=== PATIENT | female | born 1935 | race Caucasian/White ===

== ENCOUNTER 2016-12-14 11:46 | Emergency (ER) | payer OTHER ==
[2016-12-14 12:01] VITALS: BP 155/60; PULSE 60; TEMP 98.2; BMI 30.4
[2016-12-14] MEDS ORDERED: KETOROLAC TROMETHAMINE 60 MG/2 ML VIAL IM ONE (12:17)
--- NOTE | 2016-12-14 12:22 | PDOC ---
History of Present Illness - General Chief Complaint: Pain, Acute Stated Complaint: RIGHT LOWER BACK PAIN RADIATES DOWN RIGHT LEG Time Seen by Provider: 12/14/16 12:12 History Source: Patient, Old Records Exam Limitations: No Limitations - History of Present Illness Initial Comments: 12/14/16 12:18 81-year-old female with history of hypertension and sciatica in the past presents the emergency department with one month history of right-sided lower back pain radiating down her posterior right thigh described as sharp worsening with movement. The patient states that the pain is exactly the same as her sciatica pain that she experienced years ago.The patient has taken Aleve and Tylenol with minimal relief. The patient has been treated with cortisone shots in the past. She denies abdominal pain, nausea, vomiting, complaints. She denies fevers and chills. She is without other complaints at this time. There is no traumatic mechanism. Past History - Past Medical History Allergies/Adverse Reactions: Allergies Allergy/AdvReac Type Severity Reaction Status Date / Time morphine Allergy Severe Swelling Verified 12/14/16 11:49 amoxicillin trihydrate Allergy Mild Itching Verified 12/14/16 11:49 [From Augmentin] potassium clavulanate Allergy Mild Itching Verified 12/14/16 11:49 [From Augmentin] Sulfa (Sulfonamide Allergy Mild Itching Verified 12/14/16 11:49 Antibiotics) [Sulfa(Sulfonamide Antibiotics)] tetracycline [Tetracycline] Allergy Mild Itching Verified 12/14/16 11:49 nitrofurantoin Allergy Verified 12/14/16 11:49 [Nitrofurantoin] oxycodone [Oxycodone] Allergy Hallucinati Verified 12/14/16 11:49 on NITRFUR Allergy Intermediate Swelling Uncoded 12/14/16 11:49 Home Medications: Ambulatory Orders Cyclobenzaprine HCl [Flexeril 10 mg] 5 mg PO BID PRN #10 tablet MDD 2 12/14/16 Ursodiol 500 mg PO BID 12/14/16 Anemia: No Asthma: No Cancer: No Cardiac Disorders: No CVA: No COPD: No CHF: No Dementia: No Diabetes: No GI Disorders: Yes (GERD) Disorders: Yes (UTI'S) HTN: Yes Hypercholesterolemia: No Liver Disease: No Psychiatric Problems: Yes (ANXIETY) Suicide Attempt (Hx): No Seizures: No Thyroid Disease: No - Surgical History Abdominal Surgery: No Appendectomy: No Cardiac Surgery: No Cholecystectomy: Yes Lung Surgery: No Neurologic Surgery: No Orthopedic Surgery: Yes (fractured right wrist) - Immunization History Immunization Up to Date: Yes - Psycho/Social/Smoking Cessation Hx Anxiety: Yes Suicidal Ideation: No Smoking Status: No Smoking History: Never smoked Have you smoked in the past 12 months: No Number of Cigarettes Smoked Daily: 0 Information on smoking cessation initiated: No Hx Alcohol Use: No Drug/Substance Use Hx: No Substance Use Type: None Hx Substance Use Treatment: No Review of Systems - Review of Systems Able to Perform ROS?: Yes Is the patient limited Malaysian proficient: No Constitutional: No: Symptoms Reported HEENTM: No: Symptoms Reported Respiratory: No: Symptoms reported Cardiac (ROS): No: Symptoms Reported ABD/GI: No: Symptoms Reported : No: Symptoms Reported Musculoskeletal: Yes: See HPI Integumentary: No: Symptoms Reported Neurological: No: Symptoms reported *Physical Exam - Vital Signs Last Vital Signs Temp Pulse Resp BP Pulse Ox 98.2 F 60 16 155/60 97 12/14/16 11:47 12/14/16 11:47 12/14/16 11:47 12/14/16 11:47 12/14/16 11:47 - Physical Exam Comments: 12/14/16 12:19 GENERAL: Well developed, well nourished. Awake and alert. No acute distress. NECK: Supple. Full ROM. No JVD. No lymphadenopathy. CARDIOVASCULAR: Regular rate and rhythm. No murmurs, rubs, or gallops. Distal pulses are 2+ and symmetric. PULMONARY: No evidence of respiratory distress. Lungs clear to auscultation bilaterally. No wheezing, rales or rhonchi. ABDOMINAL: Soft. Non-tender. Non-distended. No rebound or guarding. No organomegaly. Normoactive bowel sounds. MUSCULOSKELETAL Normal range of motion at all joints. No bony deformities or tenderness. No CVA tenderness. EXTREMITIES: No cyanosis. No clubbing. No edema. No calf tenderness. SKIN: Warm and dry. Normal capillary refill. No rashes. No jaundice. NEUROLOGICAL: Alert, awake, appropriate. Cranial nerves 2-12 intact. Grossly non-focal exam. Medical Decision Making - Medical Decision Making 12/14/16 12:19 81-year-old female with history of sciatica and hypertension who presents to the emergency department with right-sided lower back pain radiating down her right lower extremity. Differential diagnosis includes but is not limited to: Disc herniation, sciatica, renal colicunlikely given her lack of complaints as well as nausea and vomiting. Plan: 1. Urine analysis 2. Pain management 3. Observe and reevaluate *DC/Admit/Observation/Transfer Diagnosis at time of Disposition: Lower back pain - Discharge Dispostion Disposition: HOME Condition at time of disposition: Stable Admit: No - Patient Instructions Printed Discharge Instructions: DI for Low Back Pain Additional Instructions: You may take ibuprofen 600 mg every 6-8 hours as needed for pain. You are also being prescribed flexiril 5mg--you may take one tablet up to two times per day as needed for the pain. Please follow-up with your primary care physician or orthopedist as necessary. He may return to the emergency department if your symptoms persist, worsen, or new symptoms arise.
[2016-12-14] MEDS ORDERED: KETOROLAC TROMETHAMINE 60 MG/2 ML VIAL ONE (12:23)
[2016-12-14 12:47] LABS: URINE APPEARANCE Clear; URINE BILIRUBIN 1+ (NEGATIVE); URINE BLOOD Negative (NEGATIVE); URINE GLUCOSE (UA) Negative (NEGATIVE); URINE KETONE 1+ (NEGATIVE); URINE LEUK ESTERASE Trace (NEGATIVE); URINE NITRITE Negative (NEGATIVE); URINE PROTEIN Trace (NEGATIVE); URINE UROBILINOGEN 0.2 E.U/dl (0.2-1.0)
[2016-12-14 12:48] LABS: URINE COLOR YELLOW
[2016-12-14] MEDS ORDERED: CYCLOBENZAPRINE HCL 10 MG TABLET (FP) PO ONE (13:02)
[2016-12-14] MEDS ORDERED: CYCLOBENZAPRINE HCL 10 MG TABLET (FP) ONE (13:03)
== END 2016-12-14 14:11 | disposition home or self-care (01) ==
LOC: FER 11:46
PROC: 3E0233Z Introduction of Anti-inflammatory into Muscle, Percutaneous Approach (ICD-10-PCS; principal; 2016-12-14)
DX: M54.5 Low back pain (principal); I10 Essential (primary) hypertension; K21.9 Gastro-esophageal reflux disease without esophagitis; F41.9 Anxiety disorder, unspecified; Z87.440 Personal history of urinary (tract) infections
CPT/HCPCS: 81003; 96372; 99282-25

== ENCOUNTER 2017-04-14 10:23 | Emergency (ER) | payer OTHER ==
[2017-04-14 10:38] LABS: PH,URINE 5.5 (4.5-8); URINE BILIRUBIN Negative (NEGATIVE); URINE GLUCOSE (UA) Negative (NEGATIVE); URINE KETONE Negative (NEGATIVE); URINE NITRITE Negative (NEGATIVE); URINE UROBILINOGEN 0.2 (0.2-1.0)
[2017-04-14 10:39] LABS: URINE APPEARANCE CLOUDY; URINE BLOOD 2+ (NEGATIVE); URINE COLOR YELLOW; URINE LEUK ESTERASE 2+ (NEGATIVE); URINE PROTEIN 3+ (NEGATIVE)
[2017-04-14 10:46] VITALS: BP 164/75; PULSE 65; TEMP 98.1; BMI 30.2
--- NOTE | 2017-04-14 10:50 | PDOC ---
History of Present Illness - General Chief Complaint: Urinary Problem Stated Complaint: burning on urination Time Seen by Provider: 04/14/17 10:29 - History of Present Illness Initial Comments: 04/14/17 10:51 The patient is an 81-year old female with significant past medical history of chronic back pain and lumbar radiculopathy, recurrent UTIs, who presents with dysuria since last night. Pt also reports 2/10 dull suprapubic pain. She reports she last was on levaquin for a UTI on 04/02/17 which she took 500mg the first day and 250mg for 4 days afterwards which resolved her symptoms but they recurred last night. Denies fevers, chills, flank pain, N/V/D, Denies CP, SOB, headache, focal weakness or numbness, rash, anorexia PMD is Dr. Tsang. Past History - Past Medical History Allergies/Adverse Reactions: Allergies Allergy/AdvReac Type Severity Reaction Status Date / Time morphine Allergy Severe Swelling Verified 04/14/17 10:23 amoxicillin trihydrate Allergy Mild Itching Verified 04/14/17 10:23 [From Augmentin] potassium clavulanate Allergy Mild Itching Verified 04/14/17 10:23 [From Augmentin] Sulfa (Sulfonamide Allergy Mild Itching Verified 04/14/17 10:23 Antibiotics) [Sulfa(Sulfonamide Antibiotics)] tetracycline [Tetracycline] Allergy Mild Itching Verified 04/14/17 10:23 nitrofurantoin Allergy Verified 04/14/17 10:23 [Nitrofurantoin] oxycodone [Oxycodone] Allergy Hallucinati Verified 04/14/17 10:23 on NITRFUR Allergy Intermediate Swelling Uncoded 04/14/17 10:23 Home Medications: Ambulatory Orders Ursodiol 500 mg PO BID 12/14/16 Levofloxacin [Levaquin -] 250 mg PO DAILY #10 tablet 04/14/17 Anemia: No Asthma: No Cancer: No Cardiac Disorders: No CVA: No COPD: No CHF: No Dementia: No Diabetes: No GI Disorders: Yes (GERD) Disorders: Yes (UTI'S) HTN: Yes Hypercholesterolemia: No Liver Disease: No Psychiatric Problems: Yes (ANXIETY) Seizures: No Thyroid Disease: No - Surgical History Abdominal Surgery: No Appendectomy: No Cardiac Surgery: No Cholecystectomy: Yes Lung Surgery: No Neurologic Surgery: No Orthopedic Surgery: Yes (fractured right wrist) - Immunization History Immunization Up to Date: Yes - Suicide/Smoking/Psychosocial Hx Smoking Status: No Smoking History: Never smoked Have you smoked in the past 12 months: No Number of Cigarettes Smoked Daily: 0 Hx Alcohol Use: No Drug/Substance Use Hx: No Substance Use Type: None Hx Substance Use Treatment: No Review of Systems - Review of Systems Comments:: 04/14/17 11:44 GENERAL/CONSTITUTIONAL: No fever or chills. No weakness. HEAD, EYES, EARS, NOSE AND THROAT: No change in vision. No ear pain or discharge. No sore throat. GASTROINTESTINAL: No nausea, vomiting, diarrhea or constipation. GENITOURINARY: +dysuria, +suprapubic abd pain, no frequency CARDIOVASCULAR: No chest pain or shortness of breath. RESPIRATORY: No cough, wheezing, or hemoptysis. MUSCULOSKELETAL: No joint or muscle swelling or pain. No neck or back pain. SKIN: No rash NEUROLOGIC: No headache, vertigo, loss of consciousness, or change in strength/ sensation. ENDOCRINE: No increased thirst. No abnormal weight change. HEMATOLOGIC/LYMPHATIC: No anemia, easy bleeding, or history of blood clots. ALLERGIC/IMMUNOLOGIC: No hives or skin allergy. *Physical Exam - Vital Signs Last Vital Signs Temp Pulse Resp BP Pulse Ox 98.1 F 65 17 164/75 98 04/14/17 10:23 04/14/17 10:23 04/14/17 10:23 04/14/17 10:23 04/14/17 10:23 - Physical Exam Comments: 04/14/17 11:45 GENERAL: Awake, alert, and fully oriented, in no acute distress HEAD: No signs of trauma EYES: PERRLA, EOMI, sclera anicteric, conjunctiva clear ENT: Auricles normal inspection, hearing grossly normal, nares patent, oropharynx clear without exudates. Moist mucosa NECK: Normal ROM, supple, no lymphadenopathy, JVD, or masses LUNGS: Breath sounds equal, clear to auscultation bilaterally. No wheezes, and no crackles HEART: Regular rate and rhythm, normal S1 and S2, no murmurs, rubs or gallops ABDOMEN: Soft, +mild suprapubic ttp to deep palpation, normoactive bowel sounds. No guarding, no rebound. No masses. No CVAT. EXTREMITIES: Normal range of motion, no edema. No clubbing or cyanosis. No cords, erythema, or tenderness NEUROLOGICAL: Normal speech, cranial nerves intact, negative pronator drift, 5/ 5 strength in all 4 extremities, normal sensation to light touch in all 4 extremities, normal cerebellar exam, normal gait, normal reflexes and tone SKIN: Warm, Dry, normal turgor, no rashes or lesions noted. ED Treatment Course - ADDITIONAL ORDERS Additional order review: Laboratory Results 04/14/17 10:29 Urine Color Yellow Urine Appearance Cloudy Urine pH 5.5 Ur Specific [place] 1.015 Urine Protein 3+ H Urine Glucose (UA) Negative Urine Ketones Negative Urine Blood 2+ H Urine Nitrite Negative Urine Bilirubin Negative Urine Urobilinogen 0.2 Medical Decision Making - Medical Decision Making 04/14/17 11:46 81-year-old female with a history of recurrent UTIs presents with dysuria and suprapubic pain/tenderness concerning for UTI. UA here with many wbc's and bacteria. Will treat with Levaquin as this has worked for the patient in the past but will prescribe a longer course for 10 days given the quick recurrence of symptoms after UTI just 2 weeks ago. I discussed the physical exam findings, ancillary test results and final diagnoses with the patient. I answered all of the patient's questions. The patient was satisfied with the care received and felt comfortable with the discharge plan and treatment plan. The patient will call their primary care physician within 24 hours to arrange follow-up and will return to the Emergency Department with any new, persistent or worsening symptoms. *DC/Admit/Observation/Transfer Diagnosis at time of Disposition: Acute urinary tract infection - Discharge Dispostion Disposition: HOME Condition at time of disposition: Stable Admit: No - Prescriptions Prescriptions: Levofloxacin [Levaquin -] 250 mg PO DAILY #10 tablet - Referrals Referrals: Rai Tsang MD [Primary Care Provider] - - Patient Instructions Printed Discharge Instructions: Urinary Tract Infection Additional Instructions: Follow up with Dr. Tasng in 2-3 days. Return to the emergency department immediately for any new or concerning symptoms or if your symptoms get worse. Thank you for coming to the Emergency Department today for your care. It was a pleasure to see you today. Please note that your evaluation is INCOMPLETE until you follow-up with your doctor. - Attestations Physician Attestion: 04/14/17 11:37 I, Dr. Venkat Patel MD, attest that this document has been prepared under my direction and personally reviewed by me in its entirety. I further attest, that it accurately reflects all work, treatment, procedures and medical decision -making performed by me.
[2017-04-14 10:56] LABS: URINE BACTERIA MODERATE /hpf (NEGATIVE); URINE WBC MANY (3-5)
[2017-04-14] MEDS ORDERED: PHENAZOPYRIDINE HCL 100 MG TABLET (FP) PO ONE (11:04)
[2017-04-14] MEDS ORDERED: PHENAZOPYRIDINE HCL 100 MG TABLET (FP) ONE (11:16)
[2017-04-14] MEDS ORDERED: LEVOFLOXACIN 250 MG TABLET (FP) ONE (11:16)
[2017-04-14] MEDS ORDERED: LEVOFLOXACIN 750 MG TABLET PO ONE (11:46)
[2017-04-15] MEDS ORDERED: LEVOFLOXACIN 750 MG TABLET PO ONE (11:05)
== END 2017-04-14 11:47 | disposition home or self-care (01) ==
LOC: FER 10:23
DX: N39.0 Urinary tract infection, site not specified (principal); G89.29 Other chronic pain; K21.9 Gastro-esophageal reflux disease without esophagitis; I10 Essential (primary) hypertension; F41.9 Anxiety disorder, unspecified
CPT/HCPCS: 81003; 81015; 87086; 99282-25

== ENCOUNTER 2017-04-19 18:18 | Emergency (ER) | payer OTHER ==
[2017-04-19 18:40] VITALS: BP 162/75; PULSE 62; TEMP 98.5; BMI 30.2
--- NOTE | 2017-04-19 19:30 | PDOC ---
History of Present Illness - General History Source: Patient Exam Limitations: No Limitations - History of Present Illness Initial Comments: 04/19/17 20:28 The patient is a 81 year old female, with a significant past medical history of chronic back pain and lumbar radiculopathy, recurrent UTIs, who presents to the emergency department with, complaints of right flank pain that began. Patient reports right sided pain began recently with no signs of relief. She does not rate the pain but states it is a sharp pain that is increased when sitting upright. Patient reports not taking any medication prior to coming to the ED. She states current right sided flank pain feels similar to what she has experienced in the past. Denies falling, recent trauma. Denies chest pain, shortness of breath, headache and dizziness. Denies fever, chills, nausea, vomit, diarrhea and constipation. Denies dysuria, frequency, urgency and hematuria. Allergies: Morphine, Amoxicillin Trihydrate, Potassium Clavulanate, Sulfa, Tetracycline, Past surgical history: Cholecystectomy, Right wrist orthopedic surgery. Social history: No smoking. No alcohol. No illicit drugs. PCP: Dr. Tsang <Joseph Sagastume - Last Filed: 04/19/17 20:28> <Tri Mancuso - Last Filed: 04/19/17 20:49> - General Chief Complaint: Back Pain Stated Complaint: RIGHT LOWER BACK/BUTTOCK PAIN Time Seen by Provider: 04/19/17 19:29 Past History <Joseph Sagastume - Last Filed: 04/19/17 20:28> - Past Medical History Anemia: No Asthma: No Cancer: No Cardiac Disorders: No CVA: No COPD: No CHF: No Dementia: No Diabetes: No GI Disorders: Yes (GERD) Disorders: Yes (UTI'S) HTN: Yes Hypercholesterolemia: No Liver Disease: No Psychiatric Problems: Yes (ANXIETY) Seizures: No Thyroid Disease: No Other medical history: BACK PAIN - Surgical History Abdominal Surgery: No Appendectomy: No Cardiac Surgery: No Cholecystectomy: Yes Lung Surgery: No Neurologic Surgery: No Orthopedic Surgery: Yes (fractured right wrist) - Immunization History Immunization Up to Date: Yes - Suicide/Smoking/Psychosocial Hx Smoking Status: No Smoking History: Never smoked Have you smoked in the past 12 months: No Number of Cigarettes Smoked Daily: 0 Hx Alcohol Use: No Drug/Substance Use Hx: No Substance Use Type: None Hx Substance Use Treatment: No <Tri Mancuso - Last Filed: 04/19/17 20:49> - Past Medical History Allergies/Adverse Reactions: Allergies Allergy/AdvReac Type Severity Reaction Status Date / Time morphine Allergy Severe Swelling Verified 04/14/17 10:23 amoxicillin trihydrate Allergy Mild Itching Verified 04/14/17 10:23 [From Augmentin] potassium clavulanate Allergy Mild Itching Verified 04/14/17 10:23 [From Augmentin] Sulfa (Sulfonamide Allergy Mild Itching Verified 04/14/17 10:23 Antibiotics) [Sulfa(Sulfonamide Antibiotics)] tetracycline [Tetracycline] Allergy Mild Itching Verified 04/14/17 10:23 nitrofurantoin Allergy Verified 04/14/17 10:23 [Nitrofurantoin] oxycodone [Oxycodone] Allergy Hallucinati Verified 04/14/17 10:23 on NITRFUR Allergy Intermediate Swelling Uncoded 04/14/17 10:23 Home Medications: Ambulatory Orders Ursodiol 500 mg PO BID 12/14/16 Levofloxacin [Levaquin -] 250 mg PO DAILY #10 tablet 04/14/17 Ciprofloxacin HCl [Cipro] 500 mg PO BID #14 tablet 04/19/17 Cyclobenzaprine HCl 5 mg PO DAILY 04/19/17 Review of Systems - Review of Systems Able to Perform ROS?: Yes Comments:: 04/19/17 20:28 GENERAL/CONSTITUTIONAL: No fever or chills. No weakness. HEAD, EYES, EARS, NOSE AND THROAT: No change in vision. No ear pain or discharge. No sore throat. CARDIOVASCULAR: No chest pain or shortness of breath. RESPIRATORY: No cough, wheezing, or hemoptysis. GASTROINTESTINAL: No nausea, vomiting, diarrhea or constipation. GENITOURINARY: No dysuria, frequency, or change in urination. MUSCULOSKELETAL: +Right sided flank pain. No joint or muscle swelling.. No neck or back pain. SKIN: No rash NEUROLOGIC: No headache, vertigo, loss of consciousness, or change in strength/ sensation. ENDOCRINE: No increased thirst. No abnormal weight change. HEMATOLOGIC/LYMPHATIC: No anemia, easy bleeding, or history of blood clots. ALLERGIC/IMMUNOLOGIC: No hives or skin allergy. All Other Systems: Reviewed and Negative <Mitesh,Joseph - Last Filed: 04/19/17 20:28> *Physical Exam - Vital Signs Last Vital Signs Temp Pulse Resp BP Pulse Ox 98.5 F 62 16 162/75 96 04/19/17 18:20 04/19/17 18:20 04/19/17 18:20 04/19/17 18:20 04/19/17 18:20 - Physical Exam Comments: 04/19/17 20:28 GENERAL: Awake, alert, and fully oriented, in no acute distress HEAD: No signs of trauma EYES: PERRLA, EOMI, sclera anicteric, conjunctiva clear ENT: Auricles normal inspection, hearing grossly normal, nares patent, oropharynx clear without exudates. Moist mucosa NECK: Normal ROM, supple, no lymphadenopathy, JVD, or masses LUNGS: Breath sounds equal, clear to auscultation bilaterally. No wheezes, and no crackles HEART: Regular rate and rhythm, normal S1 and S2, no murmurs, rubs or gallops ABDOMEN: Soft, nontender, normoactive bowel sounds. No guarding, no rebound. No masses EXTREMITIES: +5/5 strength with great toe extension bilaterally. +Point tenderness in her right buttock. No point tenderness over spine. Normal range of motion, no edema. No clubbing or cyanosis. No cords, erythema, or tenderness NEUROLOGICAL: Cranial nerves II through XII grossly intact. Normal speech, normal gait SKIN: Warm, Dry, normal turgor, no rashes or lesions noted. <Joseph Sagastume - Last Filed: 04/19/17 20:28> - Vital Signs Last Vital Signs Temp Pulse Resp BP Pulse Ox 98.5 F 62 16 162/75 96 04/19/17 18:20 04/19/17 18:20 04/19/17 18:20 04/19/17 18:20 04/19/17 18:20 <Tri Mancuso - Last Filed: 04/19/17 20:49> ED Treatment Course - ADDITIONAL ORDERS Additional order review: Laboratory Results 04/19/17 19:00 Urine Color Yellow Urine Appearance Clear Urine pH 6.0 Ur Specific [place] 1.015 Urine Protein Negative Urine Glucose (UA) Negative Urine Ketones Negative Urine Blood Trace-lysed H Urine Nitrite Negative Urine Bilirubin Negative Urine Urobilinogen 0.2 Ur Leukocyte Esterase 1+ H Urine RBC 0-2 Urine WBC 4-8 Ur Epithelial Cells Few Urine Bacteria Moderate - Medications Given in the ED: ED Medications Discontinued Medications Generic Name Dose Route Start Last Admin Trade Name Freq PRN Reason Stop Dose Admin Oxycodone/Acetaminophen 1 combo 04/19/17 18:59 04/19/17 19:05 Percocet 5/325 - PO 04/19/17 19:00 1 combo ONCE ONE Administration Oxycodone/Acetaminophen 1 combo 04/19/17 19:51 04/19/17 20:00 Percocet 5/325 - PO 04/19/17 19:52 1 combo ONCE ONE Administration <Joseph Sagastume - Last Filed: 04/19/17 20:28> - Medications Given in the ED: ED Medications Discontinued Medications Generic Name Dose Route Start Last Admin Trade Name Freq PRN Reason Stop Dose Admin Oxycodone/Acetaminophen 1 combo 04/19/17 18:59 04/19/17 19:05 Percocet 5/325 - PO 04/19/17 19:00 1 combo ONCE ONE Administration <Tri Mancuso - Last Filed: 04/19/17 20:49> Medical Decision Making - Medical Decision Making 04/19/17 20:43 Pt presents to the ED complaining of R sided buttock pain that radiates to her lower back and leg. Denies injuries. Pain is similar to her chronic pain. Relief with percoset in the Ed. Of note, patient was seen in the ED one week ago for UTI. Still complaining of some dysuria without nausea, vomiting, fever or flank pain. + UTI on UA. 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 Will change from levaquin to cipro and instruct patient to follow up with PMD. <Tri Mancuso - Last Filed: 04/19/17 20:49> *DC/Admit/Observation/Transfer - Attestations Scribe Attestion: 04/19/17 20:28 Documentation prepared by Joseph Sagastume, acting as ophthalmic medical technician for Tri Mancuso MD, /DO. <Joseph Sagastume - Last Filed: 04/19/17 20:28> <Tri Mancuso - Last Filed: 04/19/17 20:49> Diagnosis at time of Disposition: Sciatica Qualifiers: Laterality: right Qualified Code(s): M54.31 - Sciatica, right side - Discharge Dispostion Disposition: HOME Condition at time of disposition: Good - Prescriptions Prescriptions: Ciprofloxacin HCl [Cipro] 500 mg PO BID #14 tablet - Referrals Referrals: Rai Tsang MD [Primary Care Provider] - - Patient Instructions Printed Discharge Instructions: DI for Sciatica, DI for Urinary Tract Infection (UTI) Additional Instructions: return to the ED for severe pain, weakness in the legs, loss of bowel or bladder control. return for fever, severe nausea and vomiting, continued pain with urination.
[2017-04-19 19:59] LABS: URINE APPEARANCE Clear; URINE BILIRUBIN Negative (NEGATIVE); URINE BLOOD Trace-lysed (NEGATIVE); URINE COLOR YELLOW; URINE GLUCOSE (UA) Negative (NEGATIVE); URINE KETONE Negative (NEGATIVE); URINE LEUK ESTERASE 1+ (NEGATIVE); URINE NITRITE Negative (NEGATIVE); URINE PROTEIN Negative (NEGATIVE); URINE UROBILINOGEN 0.2 (0.2-1.0)
[2017-04-19 20:05] LABS: URINE BACTERIA MODERATE /hpf (NEGATIVE); URINE RBC 0-2 /hpf (0-3)
[2017-04-19] MEDS ORDERED: CIPROFLOXACIN 500 MG TABLET (RESTRICTED TO ID) PO ONE (21:00)
[2017-04-19] MEDS ORDERED: CIPROFLOXACIN 250 MG TABLET (RESTRICTED TO ID) PO ONE (21:01)
== END 2017-04-19 21:03 | disposition home or self-care (01) ==
LOC: FER 18:18
DX: M54.31 Sciatica, right side (principal); K21.9 Gastro-esophageal reflux disease without esophagitis; I10 Essential (primary) hypertension; F41.9 Anxiety disorder, unspecified
CPT/HCPCS: 81003; 81015; 99282-25

== ENCOUNTER 2018-02-13 10:07 | Day surgery (SDC) | payer OTHER ==
[2018-02-13] MEDS ORDERED: TRIAMCINOLONE ACET 40MG/1ML VIAL ONE (10:43)
[2018-02-13] MEDS ORDERED: LIDOCAINE HCL 1%, 10 MG/ML (20ML VIAL) ONE (10:43)
[2018-02-13] MEDS ORDERED: BUPIVACAINE HCL 0.25% 125 MG/50 ML VIAL ONE (10:43)
[2018-02-13 10:45] VITALS: BMI 29.0
[2018-02-13] MEDS ORDERED: DEXAMETHASONE SOD PHOSPHATE 10 MG/1 ML VIAL IVPUSH ONE (11:34)
[2018-02-13] MEDS ORDERED: BUPIVACAINE HCL/PF 0.25% (2.5MG/ML) 10 ML VIAL IJ ONE (11:35)
[2018-02-13] MEDS ORDERED: IOHEXOL 180 MG/1 ML ML IJ ONE (11:35)
[2018-02-13] MEDS ORDERED: PROMETHAZINE HCL 25 MG/1 ML VIAL IVPUSH PRN (11:46)
[2018-02-13] MEDS ORDERED: ONDANSETRON 4 MG/2 ML VIAL IVPUSH PRN (11:46)
[2018-02-13 12:06] VITALS: PULSE 48; TEMP 97.7
--- NOTE | 2018-02-13 13:10 | OP ---
DATE OF OPERATION: 02/13/2018 PREOPERATIVE DIAGNOSES: 1. Right lower extremity lumbar radiculopathy. 2. Lumbar spinal stenosis with neurogenic claudication. POSTOPERATIVE DIAGNOSES: 1. Right lower extremity lumbar radiculopathy. 2. Lumbar spinal stenosis with neurogenic claudication. PROCEDURE: Right lumbar transforaminal epidural steroid injection at L2-L3 under fluoroscopic guidance. SURGEON: Bryn Green MD ANESTHESIA: MAC. INDICATIONS: Patient is an 82-year-old female with several months of severe, episodic, right-sided radicular pain. She has significant spinal stenosis at L2-3. She is indicated for epidural steroid injection. Risks, benefits, and alternatives of the surgery were discussed in detail, and informed consent was obtained. DESCRIPTION: The patient was brought into the operating room via stretcher and transferred onto the OR table in the prone position. All bony prominences were padded and the back was then prepped and draped in the usual sterile fashion. Under fluoroscopic guidance, a arley was placed over the skin for the right-sided injection and 5 mL of 0.25% Marcaine was introduced as a local anesthetic. A 3-1/2-inch x 25-gauge spinal needle was inserted under guidance to the level of the foramen using a transforaminal approach just superior to the right L3 pedicle. Once the stylette was inserted to appropriate level, the stylette was removed and 0.25 mL of Omnipaque . There was no blood or CSF aspiration noted. A mixture of 1 mL of 10 mg per mL of dexamethasone and 0.5 mL of 0.25% Marcaine was introduced. The patient tolerated the procedure well without complications. Lisette [id number]
[2018-02-13 13:26] VITALS: BP 140/79
== END 2018-02-13 12:30 | disposition home or self-care (01) ==
LOC: FASU 10:07
PROVIDERS: ATTEND Orthopaedic Surgery Orthopaedic Surgery of the Spine
PROC: 3E0R33Z Introduction of Anti-inflammatory into Spinal Canal, Percutaneous Approach (ICD-10-PCS; 2018-02-13)
PROC: 3E0R3BZ Introduction of Anesthetic Agent into Spinal Canal, Percutaneous Approach (ICD-10-PCS; principal; 2018-02-13 11:45)
DX: M48.062 Spinal stenosis, lumbar region with neurogenic claudication (principal); M54.16 Radiculopathy, lumbar region
CPT/HCPCS: 72100-TC-FY; 94760; J1100

== ENCOUNTER 2018-02-24 16:42 | Emergency (ER) | payer OTHER ==
[2018-02-24 16:58] VITALS: BP 173/64; PULSE 56; TEMP 97.7; BMI 31.6
--- NOTE | 2018-02-24 17:14 | PDOC ---
Attending Attestation - Resident Resident Name: German Gonzalez - ED Attending Attestation I have performed the following: I have examined & evaluated the patient, The case was reviewed & discussed with the resident, I agree w/resident's findings & plan, Exceptions are as noted - HPI HPI: 82 yo F history chronic low back pain s/p injection by Dr. Green on February 13 presents with R low back pain radiating to the R thigh and lower leg. Denies weakness, numbness. She took tylenol prior to arrival, but continues to have pain. - Physicial Exam PE: GENERAL: Awake, alert, and fully oriented, in no acute distress HEAD: No signs of trauma EYES: PERRLA, EOMI, sclera anicteric, conjunctiva clear ENT: Auricles normal inspection, hearing grossly normal, nares patent, oropharynx clear without exudates. Moist mucosa NECK: Normal ROM, supple, no lymphadenopathy, JVD, or masses LUNGS: Breath sounds equal, clear to auscultation bilaterally. No wheezes, and no crackles HEART: Regular rate and rhythm, normal S1 and S2, no murmurs, rubs or gallops ABDOMEN: Soft, nontender, normoactive bowel sounds. No guarding, no rebound. No masses EXTREMITIES: Normal range of motion, no edema. No clubbing or cyanosis. No cords, erythema, or tenderness NEUROLOGICAL: Cranial nerves II through XII grossly intact. Normal speech, normal gait. Motor and sensation intact. SKIN: Warm, Dry, normal turgor, no rashes or lesions noted. - Medical Decision Making Will give small dose of ibuprofen for pain, as patient has multiple medication allergies, including some prior reactions to opioids (hallucinations as documented in chart, but patient cannot recall any details). If ibuprofen is not sufficient, would consider tramadol, but would give a dose in the ED first to monitor for any side effects. F/u with Dr. Green in 1-2 days.
[2018-02-24] MEDS ORDERED: IBUPROFEN 400 MG TABLET (FP) PO ONE ×2 (17:18→17:20)
--- NOTE | 2018-02-24 17:45 | PDOC ---
History of Present Illness - General Chief Complaint: Chronic pain Stated Complaint: BACK PAIN Time Seen by Provider: 02/24/18 16:47 History Source: Patient Exam Limitations: No Limitations - History of Present Illness Initial Comments: 02/24/18 17:38 Patient is an 82F with history of HTN and chronic back pain here today complaining of right sided lower back pain radiating to her leg over the past several months. The patient recently had an injection for the back, but this did not help her pain. She also had an MRI done on 02/05/18 that showed arthritis and chronic disc problems, but no emergent issue with her back pain. Denies fevers, chills, nausea, vomiting. Denies dysuria, urinary incontinence, urinary retention and saddle anesthesia. Patient state that she tried 500mg of tylenol only for pain today. Patient's medical record indicates a history of hallucinations when taking oxycodone. Past History - Past Medical History Allergies/Adverse Reactions: Allergies Allergy/AdvReac Type Severity Reaction Status Date / Time morphine Allergy Severe Swelling Verified 02/13/18 10:38 amoxicillin trihydrate Allergy Mild Itching Verified 02/13/18 10:38 [From Augmentin] potassium clavulanate Allergy Mild Itching Verified 02/13/18 10:38 [From Augmentin] Sulfa (Sulfonamide Allergy Mild Itching Verified 02/13/18 10:38 Antibiotics) [Sulfa(Sulfonamide Antibiotics)] tetracycline [Tetracycline] Allergy Mild Itching Verified 02/13/18 10:38 nitrofurantoin Allergy Verified 02/13/18 10:38 [Nitrofurantoin] oxycodone [Oxycodone] Allergy Hallucinati Verified 02/13/18 10:38 on NITRFUR Allergy Intermediate Swelling Uncoded 02/13/18 10:38 Home Medications: Ambulatory Orders Ursodiol 500 mg PO BID PRN 12/14/16 Atenolol [Tenormin -] 50 mg PO DAILY 02/13/18 Acetaminophen [Tylenol Extra Strength] 1,000 mg PO TID PRN 02/24/18 Anemia: No Asthma: No Cancer: No Cardiac Disorders: No CVA: No COPD: No CHF: No Dementia: No Diabetes: No GI Disorders: No (GERD) Disorders: Yes (UTI'S) HTN: Yes Hypercholesterolemia: No Liver Disease: No Psychiatric Problems: Yes (ANXIETY) Seizures: No Thyroid Disease: No Other medical history: CHRONIC BACK APIN - Surgical History Abdominal Surgery: No Appendectomy: No Cardiac Surgery: No Cholecystectomy: Yes Lung Surgery: No Neurologic Surgery: No Orthopedic Surgery: Yes (RIGHT WRIST FX REPAIR/BACK SX X 10 YRS AGO) - Immunization History Immunization Up to Date: Yes - Suicide/Smoking/Psychosocial Hx Smoking Status: No Smoking History: Never smoked Have you smoked in the past 12 months: No Number of Cigarettes Smoked Daily: 0 Hx Alcohol Use: No Drug/Substance Use Hx: No Substance Use Type: None Hx Substance Use Treatment: No Review of Systems - Review of Systems Comments:: 02/24/18 17:40 GENERAL/CONSTITUTIONAL: No fever or chills. No weakness. HEAD, EYES, EARS, NOSE AND THROAT: No change in vision. No sore throat. CARDIOVASCULAR: No chest pain or shortness of breath RESPIRATORY: No cough, wheezing, or hemoptysis. GASTROINTESTINAL: No nausea, vomiting, diarrhea or constipation. GENITOURINARY: No dysuria, frequency, or change in urination. MUSCULOSKELETAL: No joint or muscle swelling or pain. No neck pain. +back pain. SKIN: No rash NEUROLOGIC: No headache, vertigo, loss of consciousness, or change in strength/ sensation. ENDOCRINE: No increased thirst. No abnormal weight change HEMATOLOGIC/LYMPHATIC: No anemia, easy bleeding, or history of blood clots. ALLERGIC/IMMUNOLOGIC: No hives or skin allergy. *Physical Exam - Vital Signs Last Vital Signs Temp Pulse Resp BP Pulse Ox 97.7 F 56 L 18 173/64 97 02/24/18 16:44 02/24/18 16:44 02/24/18 16:44 02/24/18 16:44 02/24/18 16:44 - Physical Exam Comments: 02/24/18 17:41 GENERAL: Awake, alert, and fully oriented, in no acute distress, sitting straight up in bed HEAD: No signs of trauma, normocephalic, atraumatic EYES: PERRLA, EOMI, sclera anicteric, conjunctiva clear ENT: Auricles normal inspection, hearing grossly normal, nares patent, oropharynx clear without exudates. Moist mucosa NECK: Normal ROM, supple, no lymphadenopathy, JVD, or masses LUNGS: No distress, speaks full sentences, clear to auscultation bilaterally HEART: Regular rate and rhythm, normal S1 and S2, no murmurs, rubs or gallops, peripheral pulses normal and equal bilaterally. ABDOMEN: Soft, nontender, normoactive bowel sounds. No guarding, no rebound. No masses EXTREMITIES: Normal inspection, Normal range of motion, no edema. No clubbing or cyanosis. NEUROLOGICAL: Cranial nerves II through XII grossly intact. Normal speech, normal gait, no focal sensorimotor deficits BACK: Tender in lower right lateral spine. No signs of trauma, no midline tenderness SKIN: Warm, Dry, normal turgor, no rashes or lesions noted. ED Treatment Course - Medications Given in the ED: ED Medications Discontinued Medications Generic Name Dose Route Start Last Admin Trade Name Freq PRN Reason Stop Dose Admin Ibuprofen 400 mg 02/24/18 17:18 02/24/18 17:20 Motrin - PO 02/24/18 17:19 400 mg ONCE ONE Administration Medical Decision Making - Medical Decision Making 02/24/18 17:42 Patient is 82F with history of HTN and chronic back pain here today complaining of back pain. Vital signs normal and stable. Will give 400mg of motrin and reassess. Do not believe opiates are appropriate for patient given history of hallucinations. Will have patient follow up with her PMD, Dr Tsang. 02/24/18 17:49 Patient improved after motrin, asking to go home. Ambulatory. Will discharge home with return precautions. *DC/Admit/Observation/Transfer Diagnosis at time of Disposition: Back pain - Discharge Dispostion Disposition: HOME Condition at time of disposition: Good Decision to Admit order: No - Referrals Referrals: Rai Tsang MD [Primary Care Provider] - Bryn Green MD [Staff Physician] - - Patient Instructions Printed Discharge Instructions: DI for Low Back Pain Additional Instructions: Please call your primary care physician tomorrow to further evaluate your back pain. Please return if you have any new, worsening or concerning symptoms. For your back pain take: - 220mg of Aleve (Naproxen) in the morning and at night - 500mg of tylenol four times per day - Post Discharge Activity
== END 2018-02-24 17:57 | disposition home or self-care (01) ==
LOC: FER 16:42
DX: M54.5 Low back pain (principal); M54.9 Dorsalgia, unspecified; I10 Essential (primary) hypertension; G89.29 Other chronic pain; K21.9 Gastro-esophageal reflux disease without esophagitis; F41.9 Anxiety disorder, unspecified
CPT/HCPCS: 99282-25

== ENCOUNTER 2018-03-26 09:58 | Day surgery (SDC) | payer OTHER ==
[2018-03-07 12:41] VITALS: BMI 31.6
[2018-03-26] MEDS ORDERED: THROMBIN (BOVINE) 5,000 UNIT VIAL TP ONE ×2 (12:34→13:45)
[2018-03-26] MEDS ORDERED: GELATIN, ABSORBABLE 100 EACH SPONGE TP ONE ×2 (12:34→13:45)
[2018-03-26] MEDS ORDERED: SCOPOLAMINE HYDROBROMIDE 1 PATCH PATCH.TD72 ONE (13:08)
[2018-03-26] MEDS ORDERED: fentaNYL CITRATE 250 MCG/5 ML VIAL ONE (13:13)
[2018-03-26] MEDS ORDERED: PROPOFOL 20 ML ONE ×2 (13:13→15:03)
[2018-03-26] MEDS ORDERED: LIDOCAINE HCL/PF 2% SDV 5ML VIAL ONE (15:00)
[2018-03-26] MEDS ORDERED: ceFAZolin SODIUM 1 GM VIAL ONE (15:00)
[2018-03-26] MEDS ORDERED: DEXAMETHASONE SOD PHOSPHATE 4 MG/1 ML VIAL ONE (15:00)
[2018-03-26] MEDS ORDERED: GLYCOPYRROLATE 0.2 MG/1 ML VIAL ONE ×2 (15:00→15:01)
[2018-03-26] MEDS ORDERED: ONDANSETRON 4 MG/2 ML VIAL ONE (15:00)
[2018-03-26] MEDS ORDERED: NEOSTIGMINE METHYLSULFATE 0.5 MG/ML - 10 ML MDV ONE (15:01)
[2018-03-26] MEDS ORDERED: BUPIVACAINE HCL/PF 2.5 MG/ML - 30 ML VIAL IJ ONE (15:08)
[2018-03-26] MEDS ORDERED: BACITRACIN 15 GM TUBE TOPICAL OINTMENT ONE (15:09)
[2018-03-26] MEDS ORDERED: BACITRACIN 15 GM TUBE TOPICAL OINTMENT TP ONE (15:12)
[2018-03-26] MEDS ORDERED: ONDANSETRON 4 MG/2 ML VIAL IVPUSH PRN (15:24)
[2018-03-26] MEDS ORDERED: ONDANSETRON 4 MG/2 ML VIAL IVPUSH ONE (15:24)
[2018-03-26] MEDS ORDERED: PROMETHAZINE HCL 25 MG/1 ML VIAL IVPUSH PRN (15:24)
[2018-03-26] MEDS ORDERED: URSODIOL 300 MG CAPSULE PO PRN (15:26)
[2018-03-26] MEDS ORDERED: diphenhydrAMINE HCL 25 MG CAPSULE (FP) PO PRN (15:30)
[2018-03-26] MEDS ORDERED: PROMETHAZINE HCL 25 MG/1 ML VIAL IVPUSH ONE (15:50)
[2018-03-26] MEDS ORDERED: SODIUM CHLORIDE 0.45% 1,000 ML IV SCH (16:45)
--- NOTE | 2018-03-26 16:55 | OP ---
DATE OF OPERATION: 03/26/2018 PREOPERATIVE DIAGNOSES: 1. Right lower extremity lumbar radiculopathy. 2. Lumbar spinal stenosis. 3. Intervertebral lumbar disk displacement. POSTOPERATIVE DIAGNOSES: 1. Right lower extremity lumbar radiculopathy. 2. Lumbar spinal stenosis. 3. Intervertebral lumbar disk displacement. PROCEDURE PERFORMED: L2-3 decompressive laminectomy with excision of right- sided herniated disk fragments. SURGEON: Bryn Green MD FAMILY SERVICES COORDINATOR: CARLY Stoll ANESTHESIA: General. INDICATION: Patient is an 82-year-old female with severe and persistent, right- sided radicular pain in the right gluteal region and thigh. This has been refractory to management with physical therapy, multiple oral medications, as well as epidural steroid injection. The patient has been severely symptomatic now for several months, and it is affecting her quality of life. She is indicated for operative decompression. Risks, benefits, and alternatives of the surgery were discussed in detail with the patient and family, and informed consent was obtained. DESCRIPTION: The patient was brought in via stretcherand general endotracheal anesthesia was administered by the anesthesiologist. The patient was then flipped into the prone position onto a padded Hakeem frame, and all bony prominences were padded. The back was then prepped and draped in the usual sterile fashion. A timeout was performed, and prophylactic IV antibiotics were administered. A fluoroscopic C-arm was draped in to allow for intraoperative fluoroscopic radiographs. A localizing film was taken, and appropriate incision was then made at the midline. The dissection was carried down to the level of the fascia, and the fascia was then split with electrocautery. Subperiosteal dissection was carried down, exposing the bony spine. A localizing film was then taken again, and when level was verified, a complete decompressive laminectomy of the L2-3 level was performed with a subtotal L2 laminectomy. The decompression was carried down to the pedicles bilaterally with excellent decompression. There was noted to be severe spinal stenosis and hypertrophic ligamentum flavum. The stenosis was then well decompressed. A small probe was then placed lateral to the dura, and a large disk herniated fragment was noted in keeping with the MRI. This fragment was then excised. Excellent decompression was noted. The wounds were then copiously irrigated. The back fascia was then closed with number 1 Vicryl suture. The deep dermal tissue was approximated with 2-0 Vicryl suture. The skin was closed with a 3-0 nylon suture. A sterile dressing was applied. The patient tolerated the procedure well, without complications. CARLY Stoll, was necessary throughout the case for proper assistance in retraction of the neural elements and decompression of the spine. This could not have been done without a skilled surgical instrument repair specialist. Lisette [id number] MTDD
[2018-03-26] MEDS: DOCUSATE SODIUM 100 MG CAPSULE (FP) PO SCH (21:42)
[2018-03-26] MEDS: CEFAZOLIN 1 GM/D5W 1 GM/50 ML BAG IVPB SCH (22:01)
[2018-03-26] MEDS ORDERED: PT OWN MED DRAWER 7, Y5N ONE (22:43)
[2018-03-27 05:30] VITALS: TEMP 98.3
[2018-03-27] MEDS: CEFAZOLIN 1 GM/D5W 1 GM/50 ML BAG IVPB SCH (06:32)
--- NOTE | 2018-03-27 08:33 | PN ---
Progress Note (short form) - Note Progress Note: doing very well states no more right thigh pain AVSS wound dressing c/d/i NVID POD#1 -oob/pt -d/c later today -f/u one week -will leave bioocclusive dressing on for showers unless water gets in, will cover with dry dressing until dry -f/u one week from today for wound check
[2018-03-27] MEDS ORDERED: amLODIPine BESYLATE 5 MG TABLET (FP) PO SCH (10:00)
[2018-03-27] MEDS ORDERED: RAMIPRIL 5 MG CAPSULE (FP) PO SCH (10:00)
[2018-03-27] MEDS ORDERED: SERTRALINE HCL 50 MG TABLET (FP) PO SCH (10:00)
[2018-03-27] MEDS: DOCUSATE SODIUM 100 MG CAPSULE (FP) PO SCH (10:08)
[2018-03-27] MEDS: ATENOLOL 50 MG TABLET (FP) PO SCH ×2 (10:08→10:13)
[2018-03-27 10:12] VITALS: BP 153/51; PULSE 56
== END 2018-03-27 14:35 | disposition home or self-care (01) ==
LOC: FASUSAT 09:58 → FM/S 17:18 → FASUSAT 03-27 14:35
PROVIDERS: ATTEND Orthopaedic Surgery Orthopaedic Surgery of the Spine
PROC: 01NB0ZZ Release Lumbar Nerve, Open Approach (ICD-10-PCS; principal; 2018-03-26 13:42)
DX: M48.062 Spinal stenosis, lumbar region with neurogenic claudication (principal); M54.16 Radiculopathy, lumbar region; M51.26 Other intervertebral disc displacement, lumbar region
CPT/HCPCS: 72100-TC-FY; 76001-TC-FY; 94760; 97116-GP; 97161-GP

== ENCOUNTER 2018-08-07 06:15 | Emergency (ER) | payer OTHER ==
--- NOTE | 2018-08-07 06:17 | PDOC ---
History of Present Illness - General Chief Complaint: Pain, Acute Stated Complaint: BURNING ON URINATION Time Seen by Provider: 08/07/18 06:16 - History of Present Illness Initial Comments: 08/07/18 06:24 This 83-year-old woman with a history of HTN/frequent UTIs/anxiety presents with a several day history of dysuria. Patient has multiple drug ALLERGIES and ,in the past, urine pathogens had multiple drug resistances. She denies back pain, nausea/vomiting, fever/chills. No recent travel. Most recent UTI was , seen in this ER. She cannot recall if she had rapid resolution of her symptoms after treatment and. Patient states that she was seen by her PMD, , last week and urine specimen was sent for urinalysis/culture and sensitivity. She is unaware of the results of that test and has not received any treatment yet. Patient is taking her medications as prescribed Past History - Past Medical History Allergies/Adverse Reactions: Allergies Allergy/AdvReac Type Severity Reaction Status Date / Time morphine Allergy Severe Swelling Verified 08/07/18 06:46 amoxicillin trihydrate Allergy Mild Itching Verified 08/07/18 06:46 [From Augmentin] potassium clavulanate Allergy Mild Itching Verified 08/07/18 06:46 [From Augmentin] Sulfa (Sulfonamide Allergy Mild Itching Verified 08/07/18 06:46 Antibiotics) [Sulfa(Sulfonamide Antibiotics)] tetracycline [Tetracycline] Allergy Mild Itching Verified 08/07/18 06:46 nitrofurantoin Allergy Verified 08/07/18 06:46 [Nitrofurantoin] oxycodone [Oxycodone] Allergy Hallucinati Verified 08/07/18 06:46 on Home Medications: Ambulatory Orders Ursodiol 500 mg PO BID PRN 12/14/16 Atenolol [Tenormin -] 50 mg PO DAILY 02/13/18 Acetaminophen [Tylenol Extra Strength] 1,000 mg PO TID PRN 02/24/18 Sertraline HCl 50 mg PO DAILY 03/07/18 Terconazole 45 gm VG DAILY #7 cream.[email or web address] 07/15/18 Anemia: No Asthma: No Cancer: No Cardiac Disorders: No CVA: No COPD: No CHF: No Dementia: No Diabetes: No GI Disorders: Yes (GERD) Disorders: Yes (UTI'S) HTN: Yes Hypercholesterolemia: No Liver Disease: No Psychiatric Problems: Yes (ANXIETY) Seizures: No Thyroid Disease: No - Surgical History Abdominal Surgery: No Appendectomy: No Cardiac Surgery: No Cholecystectomy: Yes Lung Surgery: No Neurologic Surgery: No Orthopedic Surgery: Yes (RIGHT WRIST FX REPAIR/BACK SX X 10 YRS AGO) - Immunization History Immunization Up to Date: Yes - Suicide/Smoking/Psychosocial Hx Smoking Status: No Smoking History: Never smoked Have you smoked in the past 12 months: No Number of Cigarettes Smoked Daily: 0 Hx Alcohol Use: No Drug/Substance Use Hx: No Substance Use Type: None Hx Substance Use Treatment: No Review of Systems - Review of Systems Able to Perform ROS?: Yes Comments:: 12 point review of systems is negative except for what is noted in the history of present illness *Physical Exam - Physical Exam Comments: GENERAL: Elderly female, alert and oriented 3, anxious in moderate distress secondary to urinary dysuria; frequently tearful HEAD: Normal with no signs of trauma. EYES: PERRLA, EOMI, sclera anicteric, conjunctiva clear. ENT: Ears normal, nares patent, oropharynx clear without exudates. Moist mucous membranes. NECK: Normal range of motion, supple without lymphadenopathy, JVD, or masses. LUNGS: Breath sounds equal, clear to auscultation bilaterally. No wheezes, and no crackles. HEART:Regular rate and rhythm, normal S1 and S2 without murmur, rub or gallop. ABDOMEN:.normal bowel sounds mild suprapubic tenderness. No guarding or rebound.No masses No distention. EXTREMITIES: Normal range of motion, no edema. No clubbing or cyanosis. No erythema, or tenderness. NEUROLOGICAL: Cranial nerves II through XII grossly intact. Normal speech. No focal neurological deficits. MUSCULOSKELETAL: Back non-tender to palpation, no CVA tenderness SKIN: Warm, Dry, normal turgor, no rashes or lesions noted. Progress Note - Progress Note Progress Note: Review of the medical record reveals that patient since patient has multiple drug ALLERGIES, and she tolerates cephalosporins, she was given Keflex for her UTI. Urine culture and sensitivity ultimately revealed that pathogen was Escherichia coli sensitive to all antibiotics Patient states that in the past Pyridium had been prescribed along with antibiotic. She found significant relief when this medication is used. Medical Decision Making - Medical Decision Making 08/07/18 06:56 Patient could not produce urine specimen initially; after drinking water/ cranberry juice, patient is able to urinate and specimen was sent for urinalysis /C&S 08/07/18 07:12 Case was signed out to Dr Agarwal at change of shifts. *DC/Admit/Observation/Transfer - Discharge Dispostion Condition at time of disposition: Stable - Referrals Referrals: Rai Tsang MD [Primary Care Provider] - - Patient Instructions - Post Discharge Activity
[2018-08-07 06:32] VITALS: BP 163/70; PULSE 56; TEMP 97.4; BMI 29.2
[2018-08-07] MEDS ORDERED: ACETAMINOPHEN 325 MG TABLET (FP) ONE (07:45)
[2018-08-07] MEDS ORDERED: ACETAMINOPHEN 325 MG TABLET (FP) PO ONE (07:47)
--- NOTE | 2018-08-07 07:47 | PDOC ---
*Physical Exam - Vital Signs Last Vital Signs Temp Pulse Resp BP Pulse Ox 97.4 F L 56 L 18 163/70 99 08/07/18 06:17 08/07/18 06:17 08/07/18 06:17 08/07/18 06:17 08/07/18 06:17 - Physical Exam Comments: 08/07/18 08:10 Improved after administration of Pyridium. Less bladder discomfort. Urinalysis shows 1+ blood, negative nitrites and leukocyte esterase. Diagnosis of UTI is not certain. This could be atrophic vaginitis with recurrent irritation and pain. Antibiotics and Pyridium were begun pending urine culture results. Instructions to contact Dr. Tsang, primary physician, for referral to urologist and early childhood education instructor to further investigate the cause of frequent bladder symptoms. Patient fully ambulatory and in no significant pain or other distress upon discharge with to follow-up as directed *DC/Admit/Observation/Transfer Diagnosis at time of Disposition: Urinary tract infection Qualifiers: Urinary tract infection type: acute cystitis Hematuria presence: without hematuria Qualified Code(s): N30.00 - Acute cystitis without hematuria - Discharge Dispostion Disposition: HOME Condition at time of disposition: Improved Decision to Admit order: No - Prescriptions Prescriptions: Cephalexin Monohydrate [Keflex] 250 mg PO Q8H #20 capsule Phenazopyridine HCl [Pyridium] 100 mg PO Q8H PRN #10 tablet PRN Reason: Pain - Referrals Referrals: Rai Tsang MD [Primary Care Provider] - 08/07/18 - Patient Instructions Printed Discharge Instructions: DI for Urinary Tract Infection (UTI), DI for Atrophic Vaginitis Additional Instructions: Call Dr. Tsang's office today. See if prior urine culture obtained earlier in the week has been processed and if there is further information as to the results. Discussed with him the possibility of vaginal dryness causing recurrent symptoms and additional type of medication, may be hormonal, to counteract the frequent symptoms. Drink lots of fluids and take medication as directed until culture results are available, at which time a medication adjustment may be necessary. These results will be available from your primary physician. - Post Discharge Activity
[2018-08-07 07:51] LABS: URINE APPEARANCE Clear; URINE BILIRUBIN Negative (NEGATIVE); URINE COLOR Yellow; URINE GLUCOSE (UA) Negative (NEGATIVE); URINE KETONE Negative (NEGATIVE); URINE LEUK ESTERASE 2+ (NEGATIVE); URINE NITRITE Negative (NEGATIVE); URINE PROTEIN Negative (NEGATIVE); URINE UROBILINOGEN 0.2 (0.2-1.0)
[2018-08-07] MEDS ORDERED: PHENAZOPYRIDINE HCL 100 MG TABLET (FP) PO ONE (07:57)
[2018-08-07] MEDS ORDERED: PHENAZOPYRIDINE HCL 100 MG TABLET (FP) ONE (07:59)
[2018-08-07] MEDS ORDERED: CEPHALEXIN MONOHYDRATE 250 MG CAPSULE (FP) PO ONE (07:59)
[2018-08-07] MEDS ORDERED: CEPHALEXIN MONOHYDRATE 250 MG CAPSULE (FP) ONE (08:13)
[2018-08-07 09:29] LABS: EPI CELLS FEW /HPF; URINE BACTERIA FEW /hpf (NEGATIVE); URINE WBC >100 (0-5)
== END 2018-08-07 08:21 | disposition home or self-care (01) ==
LOC: FER 06:15
DX: N30.00 Acute cystitis without hematuria (principal)
CPT/HCPCS: 81003; 81015; 87086; 99281-25

== ENCOUNTER 2018-08-24 08:21 | Emergency (ER) | payer OTHER ==
[2018-08-24 08:37] LABS: URINE APPEARANCE Clear; URINE BILIRUBIN Negative (NEGATIVE); URINE COLOR Orange; URINE GLUCOSE (UA) Trace (NEGATIVE); URINE KETONE Negative (NEGATIVE); URINE LEUK ESTERASE 1+ (NEGATIVE); URINE NITRITE Positive (NEGATIVE); URINE PROTEIN Negative (NEGATIVE)
[2018-08-24 08:41] VITALS: BP 129/70; PULSE 57; TEMP 97.7; BMI 30.2
--- NOTE | 2018-08-24 08:52 | PDOC ---
History of Present Illness - General Chief Complaint: Urinary Problem Stated Complaint: BURN ON URINE Time Seen by Provider: 08/24/18 08:24 History Source: Patient, Family Exam Limitations: No Limitations - History of Present Illness Initial Comments: 08/24/18 08:47 HPI 83 YOF with h/o recurrent UTIs, atrophic vaginitis, HTN, anxiety presenting with dysuria, urgency frequency and suprapubic pressure x 2 days. Feels similar to prior UTIs of unclear etiology. Saw Dr Tsang earlier in the week, rxd pyridium with some symptom relief. Tolerating PO and fluid intake well. Has not seen a urologist for workup of chronic /UTI sx. Last seen in the ED 08/07/18 dxd with UTI and atrophic vaginitis, placed on course of keflex and pyridium with relief. Prior to that, also seen in the ED for UTI sx. Prior urine cultures reveal E. coli and Proteus, with several drug resistances and allergies noted Denies fever, chills, chest pain, SOB, palpitation, dizziness, weakness, N, V, D , leg swelling. No history of kidney stones. Allergies: opioids, amoxicillin, sulfa, tetracycline, nitrofurantoin Past Medical History: recurrent UTIs, atrophic vaginitis, HTN, anxiety Social history: Lives with family. No smoking. No alcohol. No illicit drugs. Surgical history: none PMD: Dr Tsang ========= ROS Constitutional: no fevers or chills. No weakness HEENT: no headache or dizziness. No congestion. No visual/hearing disturbances. CVS: no cp or syncope. Resp: no sob. No cough. Gastrointestinal: +Abdominal pressure. no nausea or vomiting or diarrhea. No flank pain. Genitourinary: +dysuria, urgency, frequency. No hematuria. MUSCULOSKELETAL: No joint pain and swelling. No neck or back pain. SKIN: no redness or skin changes, no discharge, no rash. No wounds. Hematologic: no easy bruising/bleeding. NEUROLOGIC: No headache, dizziness, LOC or altered mental status. Allergic/Immunologic: +multiple drug allergies All other systems reviewed and negative, or as documented in HPI. PE: General: Well appearing, awake and alert, NAD. HEENT: NCAT, PERRL, EOMI, clear conjunctiva, anicteric, moist mucus membranes, clear oropharynx, no oral lesions.. Neck: neck supple, FROM Resp: CTAB, normal and even respirations, no respiratory distress CVS: RRR, no murmurs, 2+ peripheral pulses throughout, no peripheral edema Abdomen: soft, NTND, no peritoneal signs. No CVAT. Back: nontender, normal inspection and ROM MSK: no edema, DUNCAN x4, ROM intact. No clubbing or cyanosis. normal bulk and tone. Neuro: alert, oriented appropriately; speech clear. Skin: warm and well perfused, cap refill <2 sec, normal color Past History - Past Medical History Allergies/Adverse Reactions: Allergies Allergy/AdvReac Type Severity Reaction Status Date / Time morphine Allergy Severe Swelling Verified 08/24/18 08:23 amoxicillin trihydrate Allergy Mild Itching Verified 08/24/18 08:23 [From Augmentin] potassium clavulanate Allergy Mild Itching Verified 08/24/18 08:23 [From Augmentin] Sulfa (Sulfonamide Allergy Mild Itching Verified 08/24/18 08:23 Antibiotics) [Sulfa(Sulfonamide Antibiotics)] tetracycline [Tetracycline] Allergy Mild Itching Verified 08/24/18 08:23 nitrofurantoin Allergy Verified 08/24/18 08:23 [Nitrofurantoin] oxycodone [Oxycodone] Allergy Hallucinati Verified 08/24/18 08:23 on Home Medications: Ambulatory Orders Atenolol [Tenormin -] 50 mg PO DAILY 02/13/18 Acetaminophen [Tylenol Extra Strength] 1,000 mg PO TID PRN 02/24/18 Sertraline HCl 50 mg PO DAILY 03/07/18 Terconazole 45 gm VG DAILY #7 cream.appl 07/15/18 Cephalexin Monohydrate [Keflex] 250 mg PO Q8H #20 capsule 08/07/18 Phenazopyridine HCl [Pyridium] 100 mg PO Q8H PRN #10 tablet 08/07/18 Cephalexin Monohydrate [Keflex -] 500 mg PO BID 7 Days #14 capsule 08/24/18 Anemia: No Asthma: No Cancer: No Cardiac Disorders: No CVA: No COPD: No CHF: No Dementia: No Diabetes: No GI Disorders: Yes (GERD) Disorders: Yes (UTI'S) HTN: Yes Hypercholesterolemia: No Liver Disease: No Psychiatric Problems: Yes (ANXIETY) Seizures: No Thyroid Disease: No - Surgical History Abdominal Surgery: No Appendectomy: No Cardiac Surgery: No Cholecystectomy: Yes Lung Surgery: No Neurologic Surgery: No Orthopedic Surgery: Yes (RIGHT WRIST FX REPAIR/BACK SX X 10 YRS AGO) - Immunization History Immunization Up to Date: Yes - Suicide/Smoking/Psychosocial Hx Smoking Status: No Smoking History: Never smoked Have you smoked in the past 12 months: No Number of Cigarettes Smoked Daily: 0 Hx Alcohol Use: No Drug/Substance Use Hx: No Substance Use Type: None Hx Substance Use Treatment: No *Physical Exam - Vital Signs Last Vital Signs Temp Pulse Resp BP Pulse Ox 97.7 F 57 L 18 129/70 100 08/24/18 08:22 08/24/18 08:22 08/24/18 08:22 08/24/18 08:22 08/24/18 08:22 Moderate Sedation - Procedure Monitoring Vital Signs: Procedure Monitoring Vital Signs Temperature 97.7 F 08/24/18 08:22 Pulse Rate 57 L 08/24/18 08:22 Respiratory Rate 18 08/24/18 08:22 Blood Pressure 129/70 08/24/18 08:22 O2 Sat by Pulse Oximetry (%) 100 08/24/18 08:22 ED Treatment Course - ADDITIONAL ORDERS Additional order review: Laboratory Results 08/24/18 08:28 Urine Color [place] Urine Appearance Clear Urine pH 6.0 Ur Specific [place] 1.010 Urine Protein Negative Urine Glucose (UA) Trace Urine Ketones Negative Urine Blood Trace-intact H Urine Nitrite Positive Urine Bilirubin Negative Urine Urobilinogen 1.0 Ur Leukocyte Esterase 1+ H Medical Decision Making - Medical Decision Making 08/24/18 08:51 hpi as documented VS wnl., no fever ddx UTI, pyelonephritis. welll appearing. no systemic sx to suggest pyelo or severe infection UA prelim _+nitrites and leuk esterase, some blood - correlating with suspected recurrent E. coli infection. prior cx reviewed, with +E. coli, Proteus and Enterobacter. multiple drug allergies and resistances noted. has taken keflex in the past with improvement, so will rx keflex course x 7 days. urology referrals provided, return precautions as documented DC with family, stable condition. pt and family verbalized understanding of impression and plan. paperwork with prior cultures and sensitivities given to family members 08/24/18 08:58 08/24/18 09:03 08/24/18 09:03 *DC/Admit/Observation/Transfer Diagnosis at time of Disposition: UTI (urinary tract infection) Qualifiers: Urinary tract infection type: site unspecified Hematuria presence: with hematuria Qualified Code(s): N39.0 - Urinary tract infection, site not specified - Discharge Dispostion Disposition: HOME Condition at time of disposition: Stable Decision to Admit order: No - Prescriptions Prescriptions: Cephalexin Monohydrate [Keflex -] 500 mg PO BID 7 Days #14 capsule - Referrals Referrals: Rai Tsang MD [Primary Care Provider] - Praful Perez MD [Staff Physician] - Brandyn Escalante MD [Staff Physician] - German Rolle MD [Staff Physician] - Cristine Bernabe MD [Staff Physician] - Benny Ernst MD [Staff Physician] - - Patient Instructions Printed Discharge Instructions: DI for Urinary Tract Infection (UTI) Additional Instructions: HOME CARE INSTRUCTIONS - you were prescribed antibiotics, take them exactly as your caregiver instructs you. ] given you have multiple allergies and multiple growths in the past (E. coli and Proteus), you are given Keflex - take 1 tablet Twice a day x 7 days you are to take the pyridium which your primary doctor gave you as needed for burning, but do not take more than 3 days supply Finish the medication even if you feel better! Drink enough water and fluids to keep your urine clear or pale yellow. Avoid caffeine, tea, and carbonated beverages - these can irritate your bladder. Empty your bladder often. Avoid holding urine for long periods of time. Empty your bladder before and after sexual intercourse. After a bowel movement, women should cleanse from front to back. Use each tissue only once. SEEK MEDICAL CARE IF: You have back pain. You develop a fever. Your symptoms do not begin to resolve within 3 days. SEEK IMMEDIATE MEDICAL CARE IF: You have severe back pain or lower abdominal pain. You develop chills. You have nausea or vomiting. You have continued burning or discomfort with urination. - Post Discharge Activity
[2018-08-24 08:53] LABS: EPI CELLS 1+ /HPF; URINE BACTERIA 2+ /hpf (NEGATIVE); URINE WBC 20-40 (0-5)
[2018-08-24] MEDS ORDERED: CEPHALEXIN MONOHYDRATE 500 MG CAPSULE (UD) PO ONE (09:02)
[2018-08-24] MEDS ORDERED: CEPHALEXIN MONOHYDRATE 500 MG CAPSULE (UD) ONE (09:06)
== END 2018-08-24 09:09 | disposition home or self-care (01) ==
LOC: FER 08:21
DX: N39.0 Urinary tract infection, site not specified (principal); I10 Essential (primary) hypertension; F41.9 Anxiety disorder, unspecified; K21.9 Gastro-esophageal reflux disease without esophagitis; Z87.440 Personal history of urinary (tract) infections; Z88.1 Allergy status to other antibiotic agents; Z88.2 Allergy status to sulfonamides; Z88.8 Allergy status to other drugs, medicaments and biological substances
CPT/HCPCS: 81003; 81015; 87086; 87186; 99281-25

== ENCOUNTER 2018-08-26 03:51 | Emergency (ER) | payer OTHER ==
--- NOTE | 2018-08-26 03:54 | PDOC ---
History of Present Illness - General Chief Complaint: Urinary Problem Stated Complaint: PAINFUL URINATION Time Seen by Provider: 08/26/18 03:53 - History of Present Illness Initial Comments: 08/26/18 04:23 This 83-year-old woman with a history of HTN, GERD, multiple UTIs, anxiety presents with persistent dysuria. Patient presented here 08/24 with painful urination and urinalysis was suggestive of UTI. Patient was prescribed Keflex and Pyridium which she has been taking as prescribed. She states that she had some slight improvement during the day 08/25 and took her dose of Keflex late in the evening. At 11 PM, she had Tylenol PM with an extra Tylenol tablet for pain relief. Since then, she has had persistent burning suprapubic pain, worsens with urination. She denies significant back pain, upper abdominal pain or nausea, fever or chills. She denies vaginal discharge, perineal itching or history of yeast infection. She has become increasingly upset and anxious through the night. Past History - Past Medical History Allergies/Adverse Reactions: Allergies Allergy/AdvReac Type Severity Reaction Status Date / Time morphine Allergy Severe Swelling Verified 08/24/18 08:23 amoxicillin trihydrate Allergy Mild Itching Verified 08/24/18 08:23 [From Augmentin] potassium clavulanate Allergy Mild Itching Verified 08/24/18 08:23 [From Augmentin] Sulfa (Sulfonamide Allergy Mild Itching Verified 08/24/18 08:23 Antibiotics) [Sulfa(Sulfonamide Antibiotics)] tetracycline [Tetracycline] Allergy Mild Itching Verified 08/24/18 08:23 nitrofurantoin Allergy Verified 08/24/18 08:23 [Nitrofurantoin] oxycodone [Oxycodone] Allergy Hallucinati Verified 08/24/18 08:23 on Home Medications: Ambulatory Orders Atenolol [Tenormin -] 50 mg PO DAILY 02/13/18 Acetaminophen [Tylenol Extra Strength] 1,000 mg PO TID PRN 02/24/18 Sertraline HCl 50 mg PO DAILY 03/07/18 Terconazole 45 gm VG DAILY #7 cream.appl 07/15/18 Cephalexin Monohydrate [Keflex] 250 mg PO Q8H #20 capsule 08/07/18 Phenazopyridine HCl [Pyridium] 100 mg PO Q8H PRN #10 tablet 08/07/18 Cephalexin Monohydrate [Keflex -] 500 mg PO BID 7 Days #14 capsule 08/24/18 Alprazolam [Xanax] 0.25 mg PO DAILY PRN #4 tablet MDD 1 tab 08/26/18 Ciprofloxacin [Cipro -] 500 mg PO Q12H #10 tablet 08/26/18 Anemia: No Asthma: No Cancer: No Cardiac Disorders: No CVA: No COPD: No CHF: No Dementia: No Diabetes: No GI Disorders: Yes (GERD) Disorders: Yes (UTI'S) HTN: Yes Hypercholesterolemia: No Liver Disease: No Psychiatric Problems: Yes (ANXIETY) Seizures: No Thyroid Disease: No - Surgical History Abdominal Surgery: No Appendectomy: No Cardiac Surgery: No Cholecystectomy: Yes Lung Surgery: No Neurologic Surgery: No Orthopedic Surgery: Yes (RIGHT WRIST FX REPAIR/BACK SX X 10 YRS AGO) - Immunization History Immunization Up to Date: Yes - Suicide/Smoking/Psychosocial Hx Smoking Status: No Smoking History: Never smoked Have you smoked in the past 12 months: No Number of Cigarettes Smoked Daily: 0 Hx Alcohol Use: No Drug/Substance Use Hx: No Substance Use Type: None Hx Substance Use Treatment: No Review of Systems - Review of Systems Able to Perform ROS?: Yes Comments:: 12 point review of systems is negative except for what is noted in the history of present illness *Physical Exam - Physical Exam Comments: GENERAL:, Elderly female, alert and oriented 3, intermittently tearful and generally anxious HEAD: Normal with no signs of trauma. EYES: PERRLA, EOMI, sclera anicteric, conjunctiva clear. ENT: Ears normal, nares patent, oropharynx clear without exudates. Moist mucous membranes. NECK: Normal range of motion, supple without lymphadenopathy, JVD, or masses. LUNGS: Breath sounds equal, clear to auscultation bilaterally. No wheezes, and no crackles. HEART:Regular rate and rhythm, normal S1 and S2 without murmur, rub or gallop. ABDOMEN:.normal bowel sounds mild suprapubic tenderness; no guarding or rebound.No masses No distention. EXTREMITIES: Normal range of motion, no edema. No clubbing or cyanosis. No erythema, or tenderness. NEUROLOGICAL: Cranial nerves II through XII grossly intact. Normal speech. No focal neurological deficits. MUSCULOSKELETAL: Back non-tender to palpation, no CVA tenderness SKIN: Warm, Dry, normal turgor, no rashes or lesions noted. Medical Decision Making - Medical Decision Making This 83-year-old woman with a history of multiple urinary tract infections in the past, along with multiple antibiotic ALLERGIES presents with persistent dysuria after presenting to this ER being treated for her latest UTI approximately 48 hours ago. Review of the preliminary urine culture reveals non -lactose fermenting GNB 40 -50,000s CFU/ML. No other results available at this time. In the recent past, the patient has had Proteus mirabilis and Escherichia coli organisms cultured; each of these were relatively sensitive to antibiotics. However, in the last year she has also had UTIs caused by Escherichia coli/ Enterococcus faecalis which were highly resistant. She has no signs of upper tract UTI at this point but remains very symptomatic. Therefore, will change antibiotics. She has no recall of ALLERGY or serious side effect to fluoroquinolones and records show that she was treated in 2017 with ciprofloxacin. Will begin Cipro 500 mg twice a day with first dose given here in the emergency room. Also will give the patient 650mg of acetaminophen 08/26/18 05:11 Patient continued to be upset and intermittently tearful. She has had alprazolam, administered here, without apparent problems. We will give her one dose of 0.25 mg now for her acute anxiety. Patient and her asked if she could have a small prescription of alprazolam to be used as needed (stating that she is under increased stress because of in the family). Small (#4) prescription for 0.25 mg to be taken once a day as needed sent to her pharmacy *DC/Admit/Observation/Transfer Diagnosis at time of Disposition: Acute urinary tract infection - Discharge Dispostion Condition at time of disposition: Stable - Prescriptions Prescriptions: Alprazolam [Xanax] 0.25 mg PO DAILY PRN #4 tablet MDD 1 tab PRN Reason: Anxiety Ciprofloxacin [Cipro -] 500 mg PO Q12H #10 tablet - Referrals - Patient Instructions Printed Discharge Instructions: DI for Urinary Tract Infection (UTI) Additional Instructions: Stop Keflex; begin Cipro 500 mg twice a day for 5 days Continue Pyridium for the next day Continue to drink plenty of water Tylenol as needed for pain Follow-up with Dr.Fader within the next 2-3 days Follow-up with urologist as recommended by Dr. Tsang (call office in the morning to arrange appointment) Return to ER if you have fever/chills/vomiting/severe pain - Post Discharge Activity
[2018-08-26 04:00] VITALS: BP 180/68; PULSE 55; TEMP 97.6; BMI 30.2
[2018-08-26] MEDS ORDERED: CIPROFLOXACIN 500 MG TABLET (RESTRICTED TO ID) PO ONE (04:21)
[2018-08-26] MEDS ORDERED: ACETAMINOPHEN 325 MG TABLET (FP) PO ONE (04:22)
[2018-08-26] MEDS ORDERED: CIPROFLOXACIN 250 MG TABLET (RESTRICTED TO ID) PO ONE (04:25)
[2018-08-26] MEDS ORDERED: ACETAMINOPHEN 325 MG TABLET (FP) ONE (04:25)
[2018-08-26] MEDS ORDERED: ALPRAZolam 0.25 MG TABLET PO ONE (05:01)
[2018-08-26] MEDS ORDERED: ALPRAZolam 0.25 MG TABLET ONE (05:02)
== END 2018-08-26 05:19 | disposition home or self-care (01) ==
LOC: FER 03:51
DX: N39.0 Urinary tract infection, site not specified (principal); I10 Essential (primary) hypertension; K21.9 Gastro-esophageal reflux disease without esophagitis; F41.9 Anxiety disorder, unspecified
CPT/HCPCS: 99281-25

== ENCOUNTER 2020-06-22 13:44 | Emergency (ER) | payer OTHER ==
[2020-06-22 14:25] VITALS: BP 136/75; PULSE 60; TEMP 97.7; BMI 28.5
[2020-06-22] MEDS ORDERED: CEPHALEXIN MONOHYDRATE 500 MG CAPSULE (UD) PO ONE (14:26)
[2020-06-22] MEDS ORDERED: CEPHALEXIN MONOHYDRATE 500 MG CAPSULE (UD) ONE (14:32)
[2020-06-22 14:33] LABS: EPITHELIAL CELLS FEW /hpf
== END 2020-06-22 15:10 | disposition home or self-care (01) ==
LOC: FER 13:44
DX: N30.00 Acute cystitis without hematuria (principal)
CPT/HCPCS: 81003; 81015; 87086; 87186; 99283-25

== ENCOUNTER 2020-07-01 17:00 | Emergency (ER) | payer OTHER ==
[2020-07-01 17:12] VITALS: BP 155/59; PULSE 52; TEMP 97.4; BMI 28.5
[2020-07-01 18:09] LABS: EPITHELIAL CELLS FEW /hpf
== END 2020-07-01 18:40 | disposition home or self-care (01) ==
LOC: FER 17:00
DX: N39.0 Urinary tract infection, site not specified (principal); R31.9 Hematuria, unspecified
CPT/HCPCS: 81003; 81015; 87086; 87186; 99283-25